=== PATIENT | female | born 1960 | race Caucasian/White ===

== ENCOUNTER → 2018-03-17 08:49 | Outpatient (CLI) | payer OTHER, SELFPAY ==
--- NOTE | 2018-03-17 08:53 | VDLE_ITS ---
Reason For Study: F/U Superficial thrombophlebitis RIGHT LEFT GSV is normal. CFV is compressible, spontaneous, phasic, CFV is compressible, spontaneous, phasic, competent, and demonstrates normal competent and demonstrates normal augmentation. augmentation. FV is compressible, spontaneous, phasic, competent and demonstrates normal augmentation. POP V is compressible, spontaneous, phasic, competent and demonstrates normal augmentation. T/P Trunk is compressible. PTV is compressible. RT PerV is compressible. Thrombus filled varicosities noted rt medial knee area. Procedure Exam performed in department. <> Interpretation Summary Deep veins of the right lower extremity are patent and compressible segmentally. There is no evidence of right lower extremity deep vein thrombosis. Valvular competence appears intact within the proximal deep venous system on the right . The right greater saphenous vein appears patent and compressible segmentally. Acute superficial thrombophlebitis is noted involving superficial varicosities in the area medial to the right knee. Ordering Physician: Jass Ch Referring Physician: Jass Ch Performed By: Paige Sánchez RVT
== END ==
PROVIDERS: Family Provider Family Medicine; PCP Family Medicine; Referring Provider Surgery; Visit Provider Surgery
DX: I80.01 Phlebitis and thrombophlebitis of superficial vessels of right lower extremity (principal); I83.10 Varicose veins of unspecified lower extremity with inflammation
CPT/HCPCS: 93971

== ENCOUNTER → 2018-06-04 09:05 | Outpatient (CLI) | payer OTHER, SELFPAY ==
--- NOTE | 2018-06-04 09:07 | VDLE_ITS ---
Reason For Study: F/U SVT RLE RIGHT LEFT GSV is normal. CFV is compressible, spontaneous, phasic, CFV is compressible, spontaneous, phasic, competent, and demonstrates normal competent and demonstrates normal augmentation. augmentation. FV is compressible, spontaneous, phasic, competent and demonstrates normal augmentation. POP V is compressible, spontaneous, phasic, competent and demonstrates normal augmentation. T/P Trunk is compressible. PTV is compressible. RT PerV is compressible. Thrombus filled vv noted rt medial knee area. No change from previous exam. Procedure Exam performed in department. Interpretation Summary Deep veins of the right lower extremity are patent and compressible segmentally. There is no evidence of right lower extremity deep vein thrombosis. Valvular competence appears intact within the proximal deep venous system on the right . The right greater saphenous vein appears patent and compressible segmentally. Acute superficial thrombophlebitis is noted involving superficial varicosities medial to the right knee. There has been no significant change since a prior study on 03/17/2018. Ordering Physician: Jass Ch Referring Physician: Jass Ch Performed By: Paige Sánchez RVT
== END ==
PROVIDERS: Family Provider Family Medicine; PCP Family Medicine; Referring Provider Surgery; Visit Provider Surgery
DX: I83.10 Varicose veins of unspecified lower extremity with inflammation (principal); M79.609 Pain in unspecified limb; Z86.72 Personal history of thrombophlebitis
CPT/HCPCS: 93971

== ENCOUNTER → 2018-09-10 08:54 | Outpatient (CLI) | payer OTHER, SELFPAY ==
--- NOTE | 2018-09-10 09:00 | VDLE_ITS ---
Reason For Study: superficial thrombophlebitis RIGHT LEFT GSV is normal. CFV is compressible, spontaneous, phasic, CFV is compressible, spontaneous, phasic, competent, and demonstrates normal competent and demonstrates normal augmentation. augmentation. FV is compressible, spontaneous, phasic, competent and demonstrates normal augmentation. POP V is compressible, spontaneous, phasic, competent and demonstrates normal augmentation. T/P Trunk is compressible. PTV is compressible. RT PerV is compressible. Partially compressible thrombus filled varicose veins noted right medial knee area. Procedure Exam performed in department. The exam was diagnostic. Interpretation Summary Deep veins of the right lower extremity are patent and compressible segmentally. There is no evidence of right lower extremity deep vein thrombosis. Valvular competence appears intact within the proximal deep venous system on the right . The right greater saphenous vein appears patent and compressible segmentally. Acute superficial thrombophlebitis is noted involving superficial varicosities near the right medial knee. There has been slight improvement since a prior exam on 06/04/2018. Ordering Physician: Jass Ch Performed By: Rasta Fry RVYesenia
== END ==
PROVIDERS: Family Provider Family Medicine; PCP Family Medicine; Referring Provider Surgery; Visit Provider Surgery
DX: I83.10 Varicose veins of unspecified lower extremity with inflammation (principal); I80.01 Phlebitis and thrombophlebitis of superficial vessels of right lower extremity
CPT/HCPCS: 93971

== ENCOUNTER → 2019-01-19 07:58 | Outpatient (CLI) | payer OTHER, SELFPAY ==
--- NOTE | 2019-01-19 08:05 | VDLE_ITS ---
Reason For Study: Chronic venous insufficiency RIGHT CFV is compressible, spontaneous, phasic, competent and demonstrates normal augmentation. FV is compressible, spontaneous, phasic, competent and demonstrates normal augmentation. POP V is compressible, spontaneous, phasic, competent and demonstrates normal augmentation. T/P Trunk is compressible. PTV is compressible. RT PerV is compressible. Partially compressible thrombus filled varicose veins noted right medial knee area. Slight improvement from 09/10/18. ASV from junction is INCOMPETENT for greater than 0.5 seconds and measures 0.90 x 0.98 cm. SFJ is INCOMPETENT and measures 0.40 x 0.44 cm. GSV proximal thigh measures 0.37 x 0.43 cm. GSV at knee measures 0.48 x 0.48 cm. GSV INCOMPETENT throughout for greater than 0.5 seconds. SSV at junction is competent and measures 0.13 x 0.13 cm. Procedure Exam performed in department. A preliminary report was called and/or faxed to [facility]. Interpretation Summary Deep veins of the right lower extremity are patent and compressible segmentally. There is no evidence of right lower extremity deep vein thrombosis. Valvular competence appears intact within the proximal deep venous system on the right . The right great saphenous vein appears patent and compressible segmentally. The right sapheno-femoral junction is incompetent . The right great saphenous vein appears segmentally incompetent. The right small saphenous vein is patent and competent. The right accessory saphenous vein at the sapheno-femoral junction is incompetent. Acute superficial thrombophlebitis is noted involving superficial varicosities near the right medial knee, with slight improvement since a prior study on 09/10/18. Ordering Physician: Jass Ch Referring Physician: Giovanny Ontiveros Performed By: Alejandra Samson RVT
== END ==
PROVIDERS: Family Provider Family Medicine; PCP Family Medicine; Referring Provider Surgery; Visit Provider Surgery
DX: I83.10 Varicose veins of unspecified lower extremity with inflammation (principal); I80.01 Phlebitis and thrombophlebitis of superficial vessels of right lower extremity
CPT/HCPCS: 93971

== ENCOUNTER → 2019-02-11 07:59 | Outpatient (CLI) | payer OTHER, SELFPAY ==
--- NOTE | 2019-02-11 08:04 | BI_ITS ---
MAMMOGRAPHY - BILATERAL SCREENING REASON FOR EXAM: Female, 59 years old. Routine annual screening examination. PERTINENT HISTORY: Non-contributory. TECHNIQUE: Digital bilateral breast darrion (3D mammographic acquisition) in the CC and MLO projections. 2-D mediolateral oblique (MLO) and craniocaudad (CC) views of both breasts were obtained. CAD: Full Field Digital Mammography with Computer Added Detection was performed. COMPARISON: Comparison is made with prior abdomen examination dated February 11, 2017. FINDINGS: Breast Composition: The breasts are heterogeneously dense, which may obscure small masses. There are no dominant masses or suspicious calcifications. No other significant abnormalities are identified. There has been no significant change since the prior study. BI/SCREEN MAMM (CAD) W/DARRION BILAT IMPRESSION: Stable bilateral screening mammogram. Yearly follow-up mammogram recommended. (A) ASSESSMENT CATEGORY: BIRADS Category 1: Negative. A letter regarding these results will be sent to the patient by the facility within 30 days. Approximately 10% of breast cancers are not detected by mammography. A normal mammogram should not delay biopsy of a clinically suspicious abnormality. [id number] Electronically Signed: Valeriano Brady, at 15:33 EDT , Service support ,
== END ==
PROVIDERS: Family Provider Family Medicine; PCP Family Medicine; Referring Provider Obstetrics & Gynecology; Visit Provider Obstetrics & Gynecology
DX: Z12.31 Encounter for screening mammogram for malignant neoplasm of breast (principal)
CPT/HCPCS: 77063; 77067

== ENCOUNTER → 2019-04-16 09:01 | Outpatient (CLI) | payer OTHER, SELFPAY ==
--- NOTE | 2019-04-16 09:03 | VDLE_ITS ---
Reason For Study: superficial thrombophlebitis RLE RIGHT CFV is compressible, spontaneous, phasic, competent and demonstrates normal augmentation. FV is compressible, spontaneous, phasic, competent and demonstrates normal augmentation. POP V is compressible, spontaneous, phasic, competent and demonstrates normal augmentation. T/P Trunk is compressible. PTV is compressible. RT PerV is compressible. Partially compressible thrombus filled varicose veins noted right medial knee area. GSV at and below knee is INCOMPETENT for greater than 0.5 seconds. SFJ is INCOMPETENT and measures 0.55 x 0.62 cm. ASV proximal thigh is INCOMPETENT for greater than 0.5 seconds and measures 0.81 x 1.01 cm. GSV above knee is competent. GSV proximal thigh measures 0.52 x 0.53 cm. GSV at knee measures 0.61 x 0.60 cm. SSV proximal calf is competent and measures 0.26 x 0.34 cm. Procedure Exam performed in department. The exam was diagnostic. Interpretation Summary Deep veins of the right lower extremity are patent and compressible segmentally. There is no evidence of right lower extremity deep vein thrombosis. Valvular competence appears intact within the proximal deep venous system on the right . The right great saphenous vein appears patent and compressible segmentally. The right sapheno-femoral junction is incompetent . The right great saphenous vein appears competent above the knee. The right great saphenous vein appears incompetent below the knee. The right small saphenous vein is patent and competent. The right accessory saphenous vein in the proximal right thigh is incompetent. Acute and chronic superficial thrombophlebitis is noted involving varicosities near the right medial knee. Ordering Physician: Jass Ch Referring Physician: Giovanny Ontiveros Performed By: Nedra Lyons, RDCS, RVT
== END ==
PROVIDERS: Family Provider Family Medicine; PCP Family Medicine; Referring Provider Surgery; Visit Provider Surgery
DX: I87.2 Venous insufficiency (chronic) (peripheral) (principal); I80.01 Phlebitis and thrombophlebitis of superficial vessels of right lower extremity
CPT/HCPCS: 93971

== ENCOUNTER → 2019-08-13 12:56 | Outpatient (CLI) | payer OTHER, SELFPAY ==
--- NOTE | 2019-08-13 13:05 | VDLE_ITS ---
Reason For Study: Paian and redness in calf RIGHT GSV is normal. CFV is compressible, spontaneous, phasic, competent and demonstrates normal augmentation. FV is compressible, spontaneous, phasic, competent and demonstrates normal augmentation. POP V is compressible, spontaneous, phasic, competent and demonstrates normal augmentation. T/P Trunk is compressible. PTV is compressible. RT PerV is compressible. Thrombus filled varicose veins noted in the proximal medial calf/knee area. Procedure Exam performed in department. A preliminary report was called and/or faxed to [facility]. Interpretation Summary Deep veins of the right lower extremity are patent and compressible segmentally. There is no evidence of right lower extremity deep vein thrombosis. Valvular competence appears intact within the proximal deep venous system on the right . The right great saphenous vein appears patent and compressible segmentally. Acute superficial thrombophlebitis is noted involving superficial varicosities on the medial aspect of the right lower extremity at the level of the knee and proximal calf. Ordering Physician: Jass Ch Referring Physician: Giovanny Ontiveros Performed By: Alejandra Samson RVT
== END ==
PROVIDERS: PCP Family Medicine; Referring Provider Surgery; Visit Provider Surgery
DX: M79.661 Pain in right lower leg (principal); I83.10 Varicose veins of unspecified lower extremity with inflammation
CPT/HCPCS: 93971

== ENCOUNTER → 2019-10-07 | Outpatient (CLI) | payer OTHER, SELFPAY ==
[2019-10-07 10:38] VITALS: BMI 27.4
[2019-10-13 05:14] LABS: HPV APTIMA, High Risk Negative (Negative)
== END | disposition home or self-care (01) ==
LOC: LABSPEC 16:57
PROVIDERS: PCP Family Medicine; Referring Provider Obstetrics & Gynecology; Visit Provider Obstetrics & Gynecology
DX: Z12.4 Encounter for screening for malignant neoplasm of cervix (principal)
CPT/HCPCS: 87624; 88175; G0145

== ENCOUNTER → 2019-11-26 07:40 | Outpatient (CLI) | payer OTHER, SELFPAY ==
[2019-10-07 10:38] VITALS: BMI 27.4
[2019-11-26 08:18] LABS: Cholesterol 198 mg/dL (200); High Density Lipoprotein 72 mg/dL; Triglycerides 45 mg/dL; Very Low Density Lipoprotein 9 mg/dL (5-40)
== END ==
PROVIDERS: PCP Family Medicine; Referring Provider Obstetrics & Gynecology; Visit Provider Obstetrics & Gynecology
DX: Z13.220 Encounter for screening for lipoid disorders (principal)
CPT/HCPCS: 36415; 80061

== ENCOUNTER → 2020-04-27 11:58 | Outpatient (CLI) | payer OTHER, SELFPAY ==
[2019-10-07 10:38] VITALS: BMI 27.4
--- NOTE | 2020-04-27 11:59 | EKG12_ITS ---
Test Reason : PREOP Blood Pressure : / mmHG Vent. Rate : 061 BPM Atrial Rate : 061 BPM P-R Int : 162 ms QRS Dur : 086 ms QT Int : 406 ms P-R-T Axes : 015 038 028 degrees QTc Int : 408 ms Normal sinus rhythm Normal ECG Confirmed by KUSH RIVAS, XANDER ([id number]), editor school photograph BASHIR RESTREPO ([id number]) on 05/01/2020 9:35:07 AM Referred By: Jass Ch Confirmed By:VITALIY CURRIE MD
== END ==
PROVIDERS: PCP Family Medicine; Visit Provider Surgery
DX: Z01.812 Encounter for preprocedural laboratory examination (principal); Z20.828 Contact with and (suspected) exposure to other viral communicable diseases
CPT/HCPCS: 87635; 93005; C9803; U0003

== ENCOUNTER → 2020-04-27 12:24 | Outpatient (CLI) | payer OTHER, SELFPAY ==
[2019-10-07 10:38] VITALS: BMI 27.4
[2020-04-27 13:37] LABS: Hematocrit 45.1 % (37-47); Hemoglobin 14.7 g/dL (12.0-15.0); Mean Corp Hgb Conc 32.6 g/dL (32-36); Mean Corpuscular Hgb 29.9 pg (27.0-32.0); Mean Corpuscular Volume 91.7 fL (81-99); Mean Platelet Vol. 9.5 fl (6.2-12.0); Platelet Count 293 K/mm3 (150-450); RBC Distribution Width CV 12.8 % (11.6-14.6); Red Blood Count 4.92 M/mm3 (4.2-5.4); White Blood Count 6.5 K/mm3 (4.4-11.0)
[2020-04-27 14:03] LABS: Anion Gap 5 (5-15); BUN 15 mg/dL (7-18); BUN/Creat Ratio 17.4 RATIO (10-20); Calcium,Total 9.4 mg/dL (8.5-10.1); Chloride 106 mmol/L (98-107); Creatinine, Serum 0.86 mg/dL (0.55-1.02); EST Glomerular Filtration Rate 72 mL/min (>60); Est Glom Filt Rate - Afr Amer 87 mL/min (>60); Glucose 83 mg/dL (74-106); Sodium Level 141 mmol/L (136-145)
== END ==
PROVIDERS: PCP Family Medicine; Referring Provider Surgery; Visit Provider Surgery
DX: Z01.812 Encounter for preprocedural laboratory examination (principal)
CPT/HCPCS: 36415; 80048; 85027

== ENCOUNTER → 2020-05-08 11:48 | Outpatient (CLI) | payer OTHER, SELFPAY ==
[2019-10-07 10:38] VITALS: BMI 27.4
--- NOTE | 2020-05-08 11:50 | VDLE_ITS ---
Reason For Study: Hx of thrombophlebitis RIGHT CFV is compressible, spontaneous, phasic, competent and demonstrates normal augmentation. FV is compressible, spontaneous, phasic, competent and demonstrates normal augmentation. POP V is compressible, spontaneous, phasic, competent and demonstrates normal augmentation. T/P Trunk is compressible. PTV is compressible. RT PerV is compressible. GSV is occluded from junction to mid calf s/p EVLA. Thrombus filled varicose veins noted in the proximal calf. Procedure This is a venous duplex using B-mode, color flow and spectral Doppler. Exam performed in department. A preliminary report was called and/or faxed to [facility]. Interpretation Summary Deep veins of the right lower extremity are patent and compressible segmentally. There is no evidence of right lower extremity deep vein thrombosis. Valvular competence appears intact within the proximal deep venous system on the right . The right great saphenous vein is occluded, consistent with a recent endothermal ablation procedure. Acute superficial thrombophlebitis is noted involving superficial varicosities in the right proximal, medial calf. Ordering Physician: Jass Ch Referring Physician: Giovanny Ontiveros Performed By: Alejandra Samson RVT
== END ==
PROVIDERS: PCP Family Medicine; Referring Provider Surgery; Visit Provider Surgery
DX: I83.10 Varicose veins of unspecified lower extremity with inflammation (principal)
CPT/HCPCS: 93971

== ENCOUNTER → 2020-05-23 08:03 | Outpatient (CLI) | payer OTHER, SELFPAY ==
[2019-10-07 10:38] VITALS: BMI 27.4
--- NOTE | 2020-05-23 08:13 | VDLE_ITS ---
Reason For Study: EVLA, SVT RIGHT CFV is compressible, spontaneous, phasic, competent and demonstrates normal augmentation. FV is compressible, spontaneous, phasic, competent and demonstrates normal augmentation. POP V is compressible, spontaneous, phasic, competent and demonstrates normal augmentation. T/P Trunk is compressible. PTV is compressible. RT PerV is compressible. GSV and anterior ASV occluded s/p EVLA. Thrombus filled varicose veins noted in the proximal calf. Slight improvement as compared to 05/08/20. Procedure This is a venous duplex using B-mode, color flow and spectral Doppler. Exam performed in department. A preliminary report was called and/or faxed to [facility]. Interpretation Summary Deep veins of the right lower extremity are patent and compressible segmentally. There is no evidence of right lower extremity deep vein thrombosis. Valvular competence appears intact within the proximal deep venous system on the right . The right great saphenous vein and anterior accessory saphenous vein are occluded, consistent with a prior endothermal ablation procedure. Acute superficial thrombophlebitis is noted involving superficial varicosities in the right proximal calf, with slight improvement since a prior study on 05/08/2020. Ordering Physician: Jass Ch Referring Physician: Giovanny Ontiveros Performed By: Alejandra Samson RVT
== END ==
PROVIDERS: PCP Family Medicine; Referring Provider Surgery; Visit Provider Surgery
DX: M79.661 Pain in right lower leg (principal)
CPT/HCPCS: 93971

== ENCOUNTER → 2021-03-12 07:42 | Outpatient (CLI) | payer OTHER, SELFPAY ==
--- NOTE | 2021-03-12 07:50 | US_ITS ---
STUDY: ABDOMINAL ULTRASOUND REASON FOR EXAM: Female, 61 years old. History of liver lesions. TECHNIQUE: Transabdominal ultrasound was performed with real-time and static larkin scale imaging. TECHNICAL QUALITY: Adequate. COMPARISON: Comparison is made with prior CT scan of the abdomen dated 03/07/2010. FINDINGS: Liver: The liver measures 17.5 cm. There is increased echogenicity consistent with fatty infiltration. The bile ducts are within normal limits. There is hepatic color flow. The direction of portal flow is hepatopetal. There is a 12.4 cm x 8.3 cm x 8.3 cm heterogeneous solid nodule in the medial aspect of the right lobe of the liver. This is seen on prior CT scan. There is also evidence of a 1 cm x 1.2 cm x 1.4 cm echogenic nodule in the posterior aspect of the right lobe suggests a very small hemangioma. Gallbladder: Normal distended gallbladder. The gallbladder wall measures 2 mm. There is a negative sonographic Stephenson''s sign. There is no pericholecystic fluid. There are no gallstones. 2 small gallbladder polyps are seen. Common Bile Duct (C.B.D.): The common bile duct measures 4 mm. Pancreas: Normal size of the head, body and tail of the pancreas. There is normal echogenicity of the pancreas. There is no demonstrated pancreatic mass or cyst. Spleen: There is splenomegaly. The spleen measures 13.2 cm x 5.5 cm x 5.5 cm. Right Kidney: Normal size of the right kidney. The right kidney measures 9.3 cm x 5.5 cm x 3.9 cm. Normal renal cortex. The right cortex measures 1.3 cm. There is no demonstrated renal mass or cyst. There is no right hydronephrosis. Left Kidney: Normal size of the left kidney. The left kidney measures 10 cm x 5.6 cm x 4.2 cm. Normal renal cortex. The left cortex measures 1.6 cm. There is no demonstrated renal mass or cyst. There is no left hydronephrosis. Aorta: Unremarkable I.V.C.: The IVC is patent. There is no ascites. US/Abdomen Complete IMPRESSION: 12.4 cm x 8.3 cm x 8.3 cm heterogeneous solid nodule in the medial aspect of the right lobe of the liver. This is essentially unchanged as compared to prior CT scan. 1 cm x 1.2 cm x 1.4 cm echogenic nodule in the right lobe suggesting a small hemangioma. Splenomegaly. Electronically Signed: Valeriano Brady MD at 11:08 EST , Service support ,
== END ==
PROVIDERS: PCP Family Medicine
DX: R93.5 Abnormal findings on diagnostic imaging of other abdominal regions, including retroperitoneum (principal)
CPT/HCPCS: 76700

== ENCOUNTER → 2022-10-11 | Outpatient (CLI) | payer OTHER, SELFPAY ==
--- NOTE | 2022-10-11 08:20 | BI_ITS ---
MAMMOGRAPHY - BILATERAL SCREENING REASON FOR EXAM: Female, 62 years old. Routine annual screening examination. PERTINENT HISTORY: Non-contributory. TECHNIQUE: Digital bilateral breast darrion (3D mammographic acquisition) in the CC and MLO projections. 2-D mediolateral oblique (MLO) and craniocaudad (CC) views of both breasts were obtained. CAD: Full Field Digital Mammography with Computer Added Detection was performed. COMPARISON: Comparison is made with prior study dated February 11, 2019. FINDINGS: Breast Composition: The breasts are heterogeneously dense, which may obscure small masses. There are no dominant masses or suspicious calcifications. Stable asymmetry of breast tissue where more breast tissue is seen in the upper outer quadrant of the right breast as compared to the left side. No other significant abnormalities are identified. There has been no significant change since the prior study. BI/SCRN MAMM (CAD)W/DARRION BILAT IMPRESSION: Stable bilateral screening mammogram. Yearly follow-up mammogram recommended. (A) ASSESSMENT CATEGORY: BIRADS Category 2: Benign. A letter regarding these results will be sent to the patient by the facility within 30 days. Approximately 10% of breast cancers are not detected by mammography. A normal mammogram should not delay biopsy of a clinically suspicious abnormality. [id number] Electronically Signed: Valeriano Brady MD at 9:50 EDT ,
== END | disposition home or self-care (01) ==
LOC: OPBI 08:19
PROVIDERS: PCP Family Medicine; Referring Provider Obstetrics & Gynecology; Visit Provider Obstetrics & Gynecology
DX: Z12.31 Encounter for screening mammogram for malignant neoplasm of breast (principal)
CPT/HCPCS: 77063; 77067